=== PATIENT | female | born 1945 | race Caucasian/White ===

== ENCOUNTER → 2019-05-08 | Outpatient (CLI) | payer MEDICARE ==
--- NOTE | 2019-05-08 15:51 | Diagnostic Imaging Report ---
INDICATION: Fall with left knee pain. TIME OF EXAM: 03:42 p.m. FINDINGS: Two views of left knee were obtained. There is medial and patellofemoral compartmental degenerative change with mild joint space narrowing and marginal spurring. Lateral compartments are maintained. The articular surfaces are smooth. No fracture, dislocation or effusion is seen. IMPRESSION: Degenerative changes. No acute bony abnormality is detected. Dictated by: Dictated on workstation # [id number]
== END ==
LOC: RAD FS 15:33
PROVIDERS: ATTEND Nurse Practitioner Family
DX: M17.12 Unilateral primary osteoarthritis, left knee (principal)
CPT/HCPCS: 73560

== ENCOUNTER → 2021-04-07 | Outpatient (CLI) | payer MEDICARE ==
--- NOTE | 2021-04-07 15:24 | Diagnostic Imaging Report ---
INDICATION: Elevated white blood cell count. TIME OF EXAM: 3:13 PM COMPARISON: No prior studies are available for comparison. FINDINGS: The heart size is normal. The pulmonary vascularity is unremarkable. The lungs are clear. No infiltrate, effusion or pneumothorax is detected. IMPRESSION: No acute cardiopulmonary process is detected. Dictated by: Dictated on workstation # [id number]
== END ==
LOC: RAD FS 15:01
PROVIDERS: ATTEND Nurse Practitioner Family
DX: D72.828 Other elevated white blood cell count (principal); J15.8 Pneumonia due to other specified bacteria
CPT/HCPCS: 71046